=== PATIENT | female | born 1955 | race Caucasian/White ===

== ENCOUNTER 2019-07-13 | Emergency (ER) | payer BC ==
[2019-07-13] MEDS ORDERED: ASPIRIN81 MG PO (14:05)
[2019-07-13] MEDS ORDERED: CARB/LEVO1 TA5 PO (14:05)
[2019-07-13] MEDS ORDERED: INGREZZA80 MG (14:06)
[2019-07-13] MEDS ORDERED: ALPRAZOLAM0.25 MG PO (14:06)
[2019-07-13] MEDS ORDERED: ESCITALOPRAM OX10 MG PO (14:07)
[2019-07-13 14:25] LABS: HEMATOCRIT 37.1 % (37.0-47.0); HEMOGLOBIN 12.1 g/dl (12.0-16.0); IMMATURE GRANULOCYTES 0.5 % (0.0-5.0); MEAN CELL VOLUME 102.8 fL CALC (80.0-100.0); MEAN CORPUSCULAR HGB 33.5 pG CALC (26.0-32.0); MEAN CORPUSCULAR HGB CONC 32.6 g/L CALC (32.0-36.0); NEUT# 10.77 thou/uL (2.00-7.15); RED BLOOD COUNT 3.61 mill/uL (4.20-5.60); RED CELL DISTRI WIDTH 15.1 % (11.5-15.5)
[2019-07-13 14:32] LABS: ALBUMIN 4.1 g/dL (3.2-5.0); ALKALINE PHOSPHATASE 100 u/l (38-126); ANION GAP 17 (6-22 (CALC)); BILIRUBIN, TOTAL 0.9 mg/dL (0.0-1.4); BUN 6 mg/dL (8-23); BUN/CREATININE RATIO 21 (12-20 (CALC)); CARBON DIOXIDE 22 mmol/l (22-30); CHLORIDE 98 mmol/l (95-108); CREATININE 0.3 mg/dL (0.5-1.0); GFR > 60 ML/MIN (>=60 (CALC)); GFR FOR AFR.AMER. > 60 ML/MIN (>=60 (CALC)); LIPASE 35 u/l (23-300); POTASSIUM 3.8 mmol/l (3.5-5.1); SGOT/AST 16 u/l (9-36); SODIUM 133 mmol/l (137-146); TOTAL PROTEIN 6.7 g/dL (6.3-8.2)
[2019-07-13 14:50] LABS: AMYLASE < 30 u/l (30-110)
[2019-07-13] MEDS ORDERED: ACETAMINOPHEN VT (17:50)
[2019-07-13] MEDS ORDERED: [UNRECOGNIZED DRUG - OTHER] VT (17:50)
== END 2019-07-13 18:03 | disposition home or self-care (01) | DRG 921 ==
PROVIDERS: Family Medicine
DX: T85.848A Pain due to other internal prosthetic devices, implants and grafts, initial encounter (principal); G89.18 Other acute postprocedural pain; G20 Parkinson's disease; Z86.73 Personal history of transient ischemic attack (TIA), and cerebral infarction without residual deficits; Y83.3 Surgical operation with formation of external stoma as the cause of abnormal reaction of the patient, or of later complication, without mention of misadventure at the time of the procedure
CPT/HCPCS: Q9967

== ENCOUNTER 2022-05-24 17:46 | Emergency (ER) | payer MEDICARE ==
[~2022-05-24] VITALS: Ht 167.6 cm; Wt 63.6 kg
[~2022-05-24 17:46] MED LIST: ACETAMINOPHEN VT; ALPRAZOLAM0.25 MG PO; ASPIRIN81 MG PO; CARB/LEVO1 TA5 PO; ESCITALOPRAM OX10 MG PEG; INGREZZA80 MG; [UNRECOGNIZED DRUG - OTHER] VT
[2022-05-24] MEDS ORDERED: PLAVIX75 MG PO (18:40)
[2022-05-24] MEDS ORDERED: NOURIANZ40 MG PO (18:41)
[2022-05-24] MEDS ORDERED: VIMPAT100 MG PO (18:41)
[2022-05-24] MEDS ORDERED: MIRTAZAPINE15 MG PO (18:42)
[2022-05-24] MEDS ORDERED: MIDODRINE5 MG PO (18:42)
[2022-05-24] MEDS ORDERED: ALPRAZOLAM0.25 MG PO (18:44)
[2022-05-24] MEDS ORDERED: LORTAB5 PO (20:04)
[2022-05-24] MEDS ORDERED: MIRALAX17 GM PO (20:04)
[2022-05-24 20:50] VITALS: BP 102/60
== END 2022-05-24 20:51 | disposition home or self-care (01) ==
LOC: ED 17:46
DX: S42.291A Other displaced fracture of upper end of right humerus, initial encounter for closed fracture (principal); G20 Parkinson's disease; W19.XXXA Unspecified fall, initial encounter; Y92.009 Unspecified place in unspecified non-institutional (private) residence as the place of occurrence of the external cause; Z86.73 Personal history of transient ischemic attack (TIA), and cerebral infarction without residual deficits

== ENCOUNTER 2022-07-22 20:47 | Emergency (ER) | payer MEDICARE ==
[~2022-07-22] VITALS: Ht 167.6 cm; Wt 63.6 kg
[~2022-07-22 20:47] MED LIST changes: +LORTAB5 PO; +MIDODRINE5 MG PO; +MIRALAX17 GM PO; +MIRTAZAPINE15 MG PO; +NOURIANZ40 MG PO; +PLAVIX75 MG PO; +VIMPAT100 MG PO
[2022-07-22 22:50] VITALS: BP 123/72
== END 2022-07-22 23:05 | disposition home or self-care (01) ==
LOC: ED 20:47
PROC: 0HQ0XZZ Repair Scalp Skin, External Approach (ICD-10-PCS; principal; 2022-07-22)
DX: S01.81XA Laceration without foreign body of other part of head, initial encounter (principal); G20 Parkinson's disease; W01.198A Fall on same level from slipping, tripping and stumbling with subsequent striking against other object, initial encounter; Z86.73 Personal history of transient ischemic attack (TIA), and cerebral infarction without residual deficits

== ENCOUNTER 2022-08-01 16:34 | Emergency (ER) | payer MEDICARE ==
[~2022-08-01] VITALS: Ht 167.6 cm; Wt 63.5 kg
[2022-08-01 16:54] VITALS: BP 129/86
== END 2022-08-01 17:00 | disposition home or self-care (01) ==
LOC: ED 16:34
DX: S01.01XD Laceration without foreign body of scalp, subsequent encounter (principal); X58.XXXD Exposure to other specified factors, subsequent encounter; G20 Parkinson's disease; Z86.73 Personal history of transient ischemic attack (TIA), and cerebral infarction without residual deficits

== ENCOUNTER 2023-01-28 21:31 | Emergency (ER) | payer MEDICARE ==
[~2023-01-28] VITALS: Ht 167.6 cm; Wt 78.0 kg
[2023-01-28 21:40] VITALS: BP 130/70
[2023-01-28 21:45] VITALS: BP 127/73
[2023-01-28 22:01] VITALS: BP 128/69
[2023-01-28 22:15] VITALS: BP 117/66
[2023-01-29 00:20] VITALS: BP 117/66
== END 2023-01-29 00:20 | disposition home or self-care (01) ==
LOC: ED 21:31
DX: T18.128A Food in esophagus causing other injury, initial encounter (principal); G20 Parkinson's disease; X58.XXXA Exposure to other specified factors, initial encounter; Z86.73 Personal history of transient ischemic attack (TIA), and cerebral infarction without residual deficits
CPT/HCPCS: J1610

== ENCOUNTER 2023-07-07 13:25 | Emergency (ER) | payer MEDICARE ==
[2023-07-07] VITALS (8 sets, daily range): BP systolic 100–110; BP diastolic 55–70
[~2023-07-07] VITALS: Ht 167.6 cm; Wt 72.5 kg
[2023-07-07] MEDS ORDERED: NAPROXEN500 MG PO (16:25)
== END 2023-07-07 16:52 | disposition home or self-care (01) ==
LOC: ED 13:25
DX: M54.50 Low back pain, unspecified (principal); M54.6 Pain in thoracic spine; G20.A1 Parkinson's disease without dyskinesia, without mention of fluctuations; W01.0XXA Fall on same level from slipping, tripping and stumbling without subsequent striking against object, initial encounter; Z86.73 Personal history of transient ischemic attack (TIA), and cerebral infarction without residual deficits

== ENCOUNTER 2024-01-19 16:24 | Emergency (ER) | payer MEDICARE, OTHER ==
[~2024-01-19] VITALS: Ht 167.6 cm; Wt 61.0 kg
[~2024-01-19 16:24] MED LIST changes: +NAPROXEN500 MG PO
[2024-01-19 21:40] VITALS: BP 109/72
== END 2024-01-19 21:40 | disposition home or self-care (01) ==
LOC: ED 16:24
DX: S00.11XA Contusion of right eyelid and periocular area, initial encounter (principal); S80.02XA Contusion of left knee, initial encounter; S00.83XA Contusion of other part of head, initial encounter; S00.81XA Abrasion of other part of head, initial encounter; M25.552 Pain in left hip; M25.551 Pain in right hip; G20.A1 Parkinson's disease without dyskinesia, without mention of fluctuations; W19.XXXA Unspecified fall, initial encounter; Z91.81 History of falling; Z86.73 Personal history of transient ischemic attack (TIA), and cerebral infarction without residual deficits

== ENCOUNTER 2024-09-09 01:04 | Inpatient (IN) | payer MEDICARE, OTHER ==
[~2024-09-09] VITALS: Ht 167.6 cm; Wt 54.0 kg
[2024-09-09] VITALS (27 sets, daily range): BP systolic 99–164; BP diastolic 59–95
[~2024-09-09 01:04] MED LIST changes: +AUGMENTIN500TAB PO; +CLOPIDOGREL75 MG PO; +LACOSAMIDE100 MG PO; +LACOSAMIDE50 MG PO; +LINZESS72 MCG PO; +NUPLAZID34 MG; +ONGENTYS50 MG; +REMERON7.5 MG PO; +REPATHA SUR140 MG/ML; +[UNRECOGNIZED DRUG - OTHER]; +[UNRECOGNIZED DRUG - OTHER]
[2024-09-09 01:59] LABS: BASO% 0.2 % (0-3); HEMATOCRIT 37.1 % (37.0-47.0); IMMATURE GRANULOCYTES 0.2 % (0.0-5.0); LYMPH% 10.6 % (15-41); MEAN CORPUSCULAR HGB 30.3 pG CALC (26.0-32.0); MEAN CORPUSCULAR HGB CONC 28.8 g/dL CAL (32.0-36.0); MONO% 5.1 % (2-13); NEUT# 10.79 thou/uL (2.00-7.15); NEUT% 83.9 % (42-76); RED BLOOD COUNT 3.53 mill/uL (4.20-5.60); RED CELL DISTRI WIDTH 15.3 % (11.5-15.5)
[2024-09-09 02:00] LABS: HEMOGLOBIN 10.7 g/dl (12.0-16.0); MEAN CELL VOLUME 105.1 fL CALC (80.0-100.0)
[2024-09-09 02:09] LABS: ALBUMIN 3.9 g/dL (3.2-5.0); ALKALINE PHOSPHATASE 109 u/l (38-126); BILIRUBIN, TOTAL 1.2 mg/dL (0.02-1.3); BUN 16 mg/dL (8-23); BUN/CREATININE RATIO 30 (12-20 (CALC)); CHLORIDE 100 mmol/l (95-108); CREATININE 0.5 mg/dL (0.5-1.0); ESTIMATED GFR 101 ML/MIN (>=90 (CALC)); POTASSIUM 3.9 mmol/l (3.5-5.1); SGOT/AST 25 u/l (9-36); SODIUM 135 mmol/l (137-146); TOTAL PROTEIN 6.8 g/dL (6.3-8.2)
[2024-09-09 02:12] LABS: ANION GAP 17 (6-22 (CALC)); CARBON DIOXIDE 22 mmol/l (22-30); ETHYL ALCOHOL < 10 mg/dl (0-30)
[2024-09-09 02:19] LABS: ACT PARTIAL THROMBO TIME 32.2 SECONDS (20.0-32.5)
[2024-09-09 02:35] LABS: D-DIMER 5.16 mg/L (0.19-0.60)
[2024-09-09] MEDS ORDERED: cefTRIAXone SODIUM 2 GM in SODIUM CHLORIDE 0.9% 100 ML IV ONE (03:40)
[2024-09-09] MEDS ORDERED: SODIUM CHLORIDE 0.9% 1,000 ML IV ONE (03:40)
[2024-09-09] MEDS ORDERED: DOXYCYCLINE HYCLATE 100 MG in SODIUM CHLORIDE 0.9% 100 ML IV ONE (03:40)
[2024-09-09 03:54] LABS: URINE BLOOD DIPSTICK Negative (NEGATIVE); URINE CLARITY Clear; URINE COLOR Yellow; URINE GLUCOSE - DIPSTICK Negative (NEGATIVE); URINE KETONE 80 mg/dL (NEGATIVE); URINE LEUK ESTERASE Negative (Negative); URINE NITRITE - DIPSTICK Negative (Negative); URINE PROTEIN - DIPSTICK 30 mg/dL (NEG-TRACE); URINE SPECIFIC GRAVITY 1.025; URINE UROBILINOGEN - DIPSTICK 0.2 E.U./dL (0.2)
[2024-09-09 04:01] LABS: URINE HYALINE CAST RARE lpf (NONE-RARE); URINE RBC 0-2 RBC/hpf (0-5); URINE SQUAMOUS EPITHELIAL CELL FEW EPI/hpf (0-FEW)
[2024-09-09] MEDS ORDERED: DEXTROSE 5% w/NACL 0.45 1,000 ML IV ONE (06:50)
[2024-09-09] MEDS ORDERED: XANAX0.25 MG PO (07:01)
[2024-09-09] MEDS ORDERED: SODIUM CHLORIDE 0.9% 1,000 ML IV PRN (07:25)
[2024-09-09] MEDS ORDERED: ACETAMINOPHEN 325 MG/TAB PO PRN (07:25)
[2024-09-09] MEDS ORDERED: MAGNESIUM HYDROXIDE 30 ML UDC PO PRN (07:25)
[2024-09-09] MEDS ORDERED: TRAMADOL HYDROC50 M1 PO (09:25)
[2024-09-09] MEDS ORDERED: [UNRECOGNIZED DRUG - OTHER] PO (09:27)
[2024-09-09] MEDS ORDERED: PROTONIX40 M2 PO (09:28)
[2024-09-09] MEDS ORDERED: CLOZAPINE25 MG PO (09:31)
[2024-09-09] MEDS ORDERED: traMADol HCL 50 MG/TAB PO PRN (10:30)
[2024-09-09] MEDS ORDERED: ALPRAZolam 0.25 MG PO PRN (10:35)
[2024-09-09] MEDS ORDERED: PANTOPRAZOLE SODIUM Sesquihydr 40 MG/TAB PO SCH (11:00)
[2024-09-09] MEDS ORDERED: CLOPIDOGREL BISULFATE 75 MG/TAB TAB PO SCH (11:00)
[2024-09-09] MEDS ORDERED: PIPERACILLIN Sodium-Tazobactam 3.375 GM in SODIUM CHLORIDE 0.9% 100 ML IV SCH (12:00)
[2024-09-09] MEDS ORDERED: PATIENT' OWN MED 1 EA DOSE PO SCH ×4 (15:00→21:00)
[2024-09-09] MEDS ORDERED: MIDODRINE HCL 5 MG TAB PO SCH (15:00)
[2024-09-09] MEDS ORDERED: ENOXAPARIN SODIUM 40 MG/0.4 ML SYR SC SCH (21:00)
[2024-09-10] VITALS (9 sets, daily range): BP systolic 82–125; BP diastolic 47–79
[2024-09-10 05:07] LABS: BASO% 0.6 % (0-3); EOS% 1.5 % (0-8); IMMATURE GRANULOCYTES 0.1 % (0.0-5.0); LYMPH% 17.4 % (15-41); MEAN CELL VOLUME 99.3 fL CALC (80.0-100.0); MEAN CORPUSCULAR HGB 30.9 pG CALC (26.0-32.0); MEAN CORPUSCULAR HGB CONC 31.1 g/dL CAL (32.0-36.0); MONO% 7.9 % (2-13); NEUT# 4.89 thou/uL (2.00-7.15); NEUT% 72.5 % (42-76); RED BLOOD COUNT 2.69 mill/uL (4.20-5.60); RED CELL DISTRI WIDTH 14.7 % (11.5-15.5)
[2024-09-10 05:11] LABS: HEMATOCRIT 26.7 % (37.0-47.0); HEMOGLOBIN 8.3 g/dl (12.0-16.0)
[2024-09-10 05:32] LABS: CREATININE 0.5 mg/dL (0.5-1.0); MAGNESIUM 2.1 mg/dL (1.6-2.3)
[2024-09-10 05:33] LABS: ALBUMIN 2.5 g/dL (3.2-5.0); BILIRUBIN, TOTAL 0.5 mg/dL (0.02-1.3); POTASSIUM 3.1 mmol/l (3.5-5.1)
[2024-09-10] MEDS ORDERED: PATIENT' OWN MED 1 EA DOSE PO PRN (09:00)
[2024-09-10] MEDS ORDERED: POTASSIUM CHLORIDE 20MEQ 100 ML IV SCH (10:30)
[2024-09-10] MEDS ORDERED: MIRTAZAPINE 15 MG/TAB PO SCH (21:00)
[2024-09-11] VITALS (10 sets, daily range): BP systolic 117–129; BP diastolic 61–82
[2024-09-11 05:20] LABS: BASO% 0.3 % (0-3); EOS% 4.2 % (0-8); HEMATOCRIT 28.1 % (37.0-47.0); HEMOGLOBIN 8.7 g/dl (12.0-16.0); IMMATURE GRANULOCYTES 0.2 % (0.0-5.0); LYMPH% 24.1 % (15-41); MEAN CELL VOLUME 98.9 fL CALC (80.0-100.0); MEAN CORPUSCULAR HGB 30.6 pG CALC (26.0-32.0); MONO% 9.7 % (2-13); NEUT# 3.54 thou/uL (2.00-7.15); NEUT% 61.5 % (42-76); RED BLOOD COUNT 2.84 mill/uL (4.20-5.60); RED CELL DISTRI WIDTH 14.7 % (11.5-15.5)
[2024-09-11 05:33] LABS: ALBUMIN 2.6 g/dL (3.2-5.0); BILIRUBIN, TOTAL 0.4 mg/dL (0.02-1.3); CREATININE 0.5 mg/dL (0.5-1.0); MAGNESIUM 1.9 mg/dL (1.6-2.3); POTASSIUM 3.4 mmol/l (3.5-5.1); TOTAL PROTEIN 5.1 g/dL (6.3-8.2)
[2024-09-11] MEDS ORDERED: POTASSIUM CHLORIDE 20MEQ 100 ML IV SCH (10:00)
[2024-09-12] VITALS (7 sets, daily range): BP systolic 103–142; BP diastolic 43–78
[2024-09-12 05:11] LABS: ALBUMIN 2.8 g/dL (3.2-5.0); BILIRUBIN, TOTAL 0.5 mg/dL (0.02-1.3); CREATININE 0.5 mg/dL (0.5-1.0); MAGNESIUM 2.2 mg/dL (1.6-2.3); POTASSIUM 3.5 mmol/l (3.5-5.1); TOTAL PROTEIN 5.2 g/dL (6.3-8.2)
[2024-09-12 05:18] LABS: BASO% 0.2 % (0-3); HEMATOCRIT 28.1 % (37.0-47.0); HEMOGLOBIN 8.6 g/dl (12.0-16.0); IMMATURE GRANULOCYTES 0.2 % (0.0-5.0); LYMPH% 25.5 % (15-41); MEAN CELL VOLUME 98.3 fL CALC (80.0-100.0); MEAN CORPUSCULAR HGB 30.1 pG CALC (26.0-32.0); MEAN CORPUSCULAR HGB CONC 30.6 g/dL CAL (32.0-36.0); MONO% 9.2 % (2-13); NEUT# 3.71 thou/uL (2.00-7.15); NEUT% 61.9 % (42-76); RED BLOOD COUNT 2.86 mill/uL (4.20-5.60); RED CELL DISTRI WIDTH 14.6 % (11.5-15.5)
[2024-09-13] VITALS: BP 128/78
[2024-09-13 04:14] VITALS: BP 120/71
[2024-09-13 06:08] LABS: BASO% 0.4 % (0-3); EOS% 2.7 % (0-8); HEMATOCRIT 27.3 % (37.0-47.0); HEMOGLOBIN 8.5 g/dl (12.0-16.0); IMMATURE GRANULOCYTES 0.4 % (0.0-5.0); LYMPH% 26.5 % (15-41); MEAN CELL VOLUME 98.6 fL CALC (80.0-100.0); MEAN CORPUSCULAR HGB 30.7 pG CALC (26.0-32.0); MEAN CORPUSCULAR HGB CONC 31.1 g/dL CAL (32.0-36.0); MONO% 9.2 % (2-13); NEUT# 3.44 thou/uL (2.00-7.15); NEUT% 60.8 % (42-76); RED BLOOD COUNT 2.77 mill/uL (4.20-5.60); RED CELL DISTRI WIDTH 14.4 % (11.5-15.5)
[2024-09-13 06:13] LABS: ALBUMIN 2.9 g/dL (3.2-5.0); BILIRUBIN, TOTAL 0.5 mg/dL (0.02-1.3); CREATININE 0.5 mg/dL (0.5-1.0); POTASSIUM 3.4 mmol/l (3.5-5.1); TOTAL PROTEIN 5.4 g/dL (6.3-8.2)
[2024-09-13 06:59] VITALS: BP 109/54
[2024-09-13 11:14] VITALS: BP 110/70
[2024-09-13] MEDS ORDERED: AMOX/K CLAV875 M1 PO (11:43)
== END 2024-09-13 13:25 | disposition home health service (06) | DRG 871 ==
LOC: ED 01:04 → ED-I 01:56 → ED 01:56 → ED-I 06:32 → ED 06:43 → MS2 06:44
PROVIDERS: Emergency Medicine; Internal Medicine; Nurse Practitioner Family; ADMIT Internal Medicine; ATTEND Internal Medicine
PROC: 0T9B70Z Drainage of Bladder with Drainage Device, Via Natural or Artificial Opening (ICD-10-PCS; principal; 2024-09-09)
DX: A41.9 Sepsis, unspecified organism (principal); J18.9 Pneumonia, unspecified organism; G20.A1 Parkinson's disease without dyskinesia, without mention of fluctuations; R33.9 Retention of urine, unspecified; E87.6 Hypokalemia; R13.10 Dysphagia, unspecified; G40.909 Epilepsy, unspecified, not intractable, without status epilepticus; Z86.73 Personal history of transient ischemic attack (TIA), and cerebral infarction without residual deficits; Z93.1 Gastrostomy status
CPT/HCPCS: J0696; J1650; J2543; J3480; Q9967